=== PATIENT | male | born 1965 | race Caucasian/White ===

== ENCOUNTER 2023-02-06 09:38 | Observation (INO) | payer OTHER ==
[2023-02-06] VITALS (9 sets, daily range): BP systolic 103–128; BP diastolic 55–75
[~2023-02-06] VITALS: Ht 188 cm; Wt 117.9 kg
[~2023-02-06 09:38] MED LIST: CRESTOR10 MG PO; SERTRALINE HYD100 MG PO; TAMSULOSIN HCL0.4 MG PO; XARELTO10 MG PO
[2023-02-07 04:36] VITALS: BP 105/68
[2023-02-07 05:00] VITALS: BP 105/68
[2023-02-07 05:28] LABS: BASO% 0.1 % (0-3); HEMATOCRIT 41.8 % (39.0-50.0); HEMOGLOBIN 13.7 g/dl (14.0-18.0); IMMATURE GRANULOCYTES 0.2 % (0.0-5.0); LYMPH% 16.9 % (15-41); MEAN CELL VOLUME 90.7 fL CALC (80.0-100.0); MEAN CORPUSCULAR HGB 29.7 pG CALC (26.0-32.0); MEAN CORPUSCULAR HGB CONC 32.8 g/dL CAL (32.0-36.0); MONO% 7.2 % (2-13); NEUT# 10.86 thou/uL (1.82-7.42); NEUT% 75.6 % (42-76); RED BLOOD COUNT 4.61 mill/uL (4.70-6.10); RED CELL DISTRI WIDTH 15.5 % (11.5-15.5)
[2023-02-07 05:51] LABS: ALBUMIN 3.4 g/dL (3.2-5.0); ALKALINE PHOSPHATASE 55 u/l (38-126); ANION GAP 10 (6-22 (CALC)); BILIRUBIN, TOTAL 0.5 mg/dL (0.2-1.3); BUN 17 mg/dL (9-20); BUN/CREATININE RATIO 21 (12-20 (CALC)); CARBON DIOXIDE 20 mmol/l (22-30); CHLORIDE 109 mmol/l (95-108); CREATININE 0.8 mg/dL (0.7-1.3); GFR FOR AFR.AMER. > 60 ML/MIN (>=60 (CALC)); GFR OTHER RACES > 60 ML/MIN (>=60 (CALC)); POTASSIUM 4.3 mmol/l (3.5-5.1); SGOT/AST 28 u/l (17-59); SODIUM 135 mmol/l (137-146); TOTAL PROTEIN 6.6 g/dL (6.3-8.2)
[2023-02-07 07:07] VITALS: BP 95/52
[2023-02-07 10:03] VITALS: BP 115/61
[2023-02-07] MEDS ORDERED: PERCOCET 5/325M1 TAB PO ×2 (11:21→11:25)
[2023-02-07 14:04] VITALS: BP 121/61
[2023-02-12] MEDS ORDERED: PERCOCET 10/31 COMBO PO (14:14)
== END 2023-02-07 15:14 | disposition home or self-care (01) | DRG 355 ==
LOC: ORM 09:38 → MS2 14:17
PROVIDERS: ADMIT Surgery; ATTEND Surgery
PROC: 0WUF0JZ Supplement Abdominal Wall with Synthetic Substitute, Open Approach (ICD-10-PCS; principal; 2023-02-06)
DX: K43.2 Incisional hernia without obstruction or gangrene (principal); K66.0 Peritoneal adhesions (postprocedural) (postinfection); F17.210 Nicotine dependence, cigarettes, uncomplicated
CPT/HCPCS: J0131; J0690; J1100